=== PATIENT | female | born 1995 | race Caucasian/White ===

== ENCOUNTER 2016-12-26 06:58 | Emergency (ER) | payer BC ==
--- OUTSIDE RECORDS SUMMARY | 2016-12-26 07:22 | XMS REPORT | Summary of Care ---
:1995 Author Organization [facility] Address [address] [place] [address] Care Team Providers Name Role Phone Anne-Marie Mcneill Primary Care Physician Mariann Gracia Primary Care Physician Encounter Date(s): 10/06/16 - 10/06/16 [facility], [address] [place] [address]- [facility] Discharge Disposition: Discharged to Home or Self Care Attending Physician: DORA Bang Referring Physician: DORA Bang Vital Signs No data available for this section Problem List Condition Effective Dates Status Health Status Informant Iron deficiency anemia(Confirmed) Active Asthma(Confirmed) Active Hypothyroid(Confirmed) Active Migraines(Confirmed) Active Allergies, Adverse Reactions, Alerts No Known Medication Allergies Medications amitriptyline 25 mg oral tablet See Instructions, 1 tab(s) Oral HS for one week then 2 tabs oral HS, # 60 tab(s) , 1 Refill(s), Start Date: 08/09/16 10:20:00 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 Special Instructions: 2 tablets at start of attack; 1 additional tablet every 30 minutes, if needed maximum 6 tablets per attack, 10 per week Start Date: 04/14/14 Stop Date: 05/20/14 Status: Completedferrous sulfate extended release Oral, Daily, 0 Refill(s) Start Date: 12/23/13 Status: OrderedImitrex 25 mg oral tablet See Instructions, 1 tab(s) Oral at onset of headache, may repeat 1 tablet in 2 hours if headache has not resolved., # 9 tab(s), 0 Refill(s), Start Date: 13:35:49 MILLING SUPERVISOR, Pharmacy: [place], [place] Special Instructions: 1 tab(s) Oral at onset of headache, may repeat 1 tablet in 2 hours if headache has not resolved. Start Date: 07/06/15 Stop Date: 07/03/16 Status: CompletedImitrex 25 mg oral tablet See Instructions, 1 tab(s) Oral at onset of headache, may repeat 1 tablet in 2 hours if headache has not resolved., # 9 tab(s), 0 Refill(s), called to pharmacy (Rx) Special Instructions: 1 tab(s) Oral at onset of headache, may repeat 1 tablet in 2 hours if headache has not resolved. Start Date: 04/14/14 Stop Date: 07/06/15 Status: DiscontinuedImitrex 25 mg oral tablet 1 tab(s), Oral, Daily, take as directed, 0 Refill(s) Special Instructions: take as directed Start Date: 11/10/13 Stop Date: 12/09/13 Status: CompletedImitrex 25 mg oral tablet See Instructions, 1 tab(s) Oral at onset of headache, may repeat 1 tablet in 2 hours if headache has not resolved., # 9 tab(s), 0 Refill(s), Start Date: 9:22:15 MILLING SUPERVISOR, Pharmacy: [place], [place] Special Instructions: 1 tab(s) Oral at onset of headache, may repeat 1 tablet in 2 hours if headache has not resolved. Start Date: 07/03/16 Stop Date: 08/09/16 Status: DiscontinuedImitrex 50 mg oral tablet 1 tab(s), Oral, Daily, PRN for migraine headache, may repeat dose after 2 hours up to a maximum of 200 mg in 24 hours, # 18 tab(s), 0 Refill(s), Start Date: 10:21:00 MILLING SUPERVISOR, Pharmacy: [place], [place] Special Instructions: may repeat dose after 2 hours up to a maximum of 200 mg in 24 hours Start Date: 08/09/16 Status: OrderedNora-Be 0.35 mg oral tablet 1 tab(s), Oral, Daily, # 28 tab(s), 0 Refill(s), Start Date: 07/03/16 9:16:00 MILLING SUPERVISOR, Pharmacy: [facility] [place], [place] Start Date: 07/03/16 Stop Date: 07/03/16 Status: CompletedNora-Be 0.35 mg oral tablet 1 tab(s), Oral, Daily, # 90 tab(s), 3 Refill(s), Start Date: 07/03/16 9:22:33 MILLING SUPERVISOR, Pharmacy: [facility] Start Date: 07/03/16 Status: Orderednortriptyline 25 mg oral capsule 2 cap(s), Oral, Daily, Needs f/u appt, # 60 cap(s), 0 Refill(s), Pharmacy: [facility] Special Instructions: Needs f/u appt Start Date: 03/17/14 Stop Date: 04/14/14 Status: Discontinuednortriptyline 25 mg oral capsule 2 cap(s), Oral, Daily, # 90 cap(s), 0 Refill(s) Start Date: 03/17/14 Stop Date: 03/17/14 Status: Discontinuednortriptyline 25 mg oral capsule 2 cap(s), Oral, Daily, # 180 cap(s), 3 Refill(s), Start Date: 04/14/14 12:34:02 CDT, Pharmacy: [facility] Start Date: 04/14/14 Stop Date: 07/31/14 Status: Completednortriptyline 25 mg oral capsule 2 cap(s), Oral, Daily, 0 Refill(s) Start Date: 11/24/13 Stop Date: 01/09/14 Status: Completednortriptyline 25 mg oral capsule 2 cap(s), Oral, Daily, waiting for mail order, # 60 cap(s), 0 Refill(s), Start Date: 07/31/14 13:32:45 MILLING SUPERVISOR, Pharmacy: [facility] [place], [place] Special Instructions: waiting for mail order Start Date: 07/31/14 Stop Date: 07/06/15 Status: Discontinuednortriptyline 50 mg oral capsule 2 cap(s), Oral, HS, 0 Refill(s), Start Date: 07/03/16 8:15:00 MILLING SUPERVISOR Start Date: 07/03/16 Stop Date: 07/03/16 Status: Discontinuednortriptyline 50 mg oral capsule 2 cap(s), Oral, HS, # 60 cap(s), 0 Refill(s), Start Date: 07/03/16 9:24:05 MILLING SUPERVISOR, Pharmacy: [place], [place] Start Date: 07/03/16 Stop Date: 08/09/16 Status: Discontinuednortriptyline 50 mg oral capsule 2 cap(s), Oral, HS, # 60 cap(s), 0 Refill(s), Start Date: 07/03/16 9:21:00 MILLING SUPERVISOR, Pharmacy: [place], [place] Start Date: 07/03/16 Stop Date: 07/03/16 Status: CompletedOrtho Tri-Cyclen oral tablet 1 tab(s), Oral, Daily, 0 Refill(s) Start Date: 12/23/13 Stop Date: 12/23/13 Status: DiscontinuedOrtho-Novum 1/35 1 tab(s), Oral, Daily, 0 Refill(s) Start Date: 12/23/13 Stop Date: 01/20/14 Status: DiscontinuedOrtho-Novum 1/35 oral tablet 1 tab(s), Oral, Daily, Needs F/u Osito, # 28 tab(s), 1 Refill(s), Start Date: 06/07/15 15:47:31 CDT, Pharmacy: [place], [place] Special Instructions: Needs F/u Osito Start Date: 06/07/15 Stop Date: 07/06/15 Status: DiscontinuedOrtho-Novum 1/35 oral tablet 1 tab(s), Oral, Daily, Needs F/u Os[place], # 28 tab(s), 5 Refill(s), Start Date: 07/06/15 13:34:56 MILLING SUPERVISOR, Pharmacy: [place], [place] Special Instructions: Needs F/u Osito Start Date: 07/06/15 Stop Date: 07/03/16 Status: DiscontinuedOrtho-Novum oral tablet 1 tab(s), Oral, Daily, Called to [facility] [phone], X 28 days, # 28 tab(s), 1 Refill(s), Start Date: 01/20/14 15:14:00 CDT, called to pharmacy (Rx) Special Instructions: Called to [facility] [phone] Start Date: 01/20/14 Stop Date: 06/07/15 Status: CompletedProAir HFA 90 mcg/inh inhalation aerosol 2 puff(s), Inhale, q4hr, # 2 EA, 11 Refill(s), Start Date: 08/09/16 10:11:54 MILLING SUPERVISOR , Pharmacy: [place], [place] Start Date: 08/09/16 Status: OrderedProAir HFA 90 mcg/inh inhalation aerosol 2 puff(s), Inhale, q4hr, 0 Refill(s) Start Date: 12/23/13 Stop Date: 12/23/13 Status: DiscontinuedProAir HFA 90 mcg/inh inhalation aerosol 2 puff(s), Inhale, q4hr, # 1 EA, 1 Refill(s), Start Date: 12/23/13 9:41:00 CDT, Pharmacy: [facility] Start Date: 12/23/13 Stop Date: 07/03/16 Status: CompletedProAir HFA 90 mcg/inh inhalation aerosol 2 puff(s), Inhale, q4hr, # 1 EA, 0 Refill(s), Start Date: 07/03/16 9:20:48 MILLING SUPERVISOR, Pharmacy: [place], [place] Start Date: 07/03/16 Stop Date: 08/09/16 Status: CompletedSynthroid 50 mcg (0.05 mg) oral tablet 1 tab(s), Oral, Daily, # 30 tab(s), 1 Refill(s), Start Date: 08/09/16 10:10:39 MILLING SUPERVISOR, Pharmacy: [facility], [place] Start Date: 08/09/16 Status: OrderedSynthroid 50 mcg (0.05 mg) oral tablet 1 tab(s), Oral, Daily, Needs f/u Osito, # 30 tab(s), 0 Refill(s), Start Date: 06/07/15 15:46:58 CDT, Pharmacy: [place], [place] Special Instructions: Needs f/u Os[place] Start Date: 06/07/15 Stop Date: 07/06/15 Status: DiscontinuedSynthroid 50 mcg (0.05 mg) oral tablet 1 tab(s), Oral, Daily, Needs f/u Osito, # 30 tab(s), 5 Refill(s), Start Date: 07/06/15 13:34:54 MILLING SUPERVISOR, Pharmacy: [place], [place] Special Instructions: Needs f/u Osito Start Date: 07/06/15 Stop Date: 07/03/16 Status: CompletedSynthroid 50 mcg (0.05 mg) oral tablet 1 tab(s), Oral, Daily, # 30 tab(s), 0 Refill(s), Pharmacy: [facility] Start Date: 02/05/14 Stop Date: 02/05/14 Status: CompletedSynthroid 50 mcg (0.05 mg) oral tablet 1 tab(s), Oral, Daily, 0 Refill(s) Start Date: 12/23/13 Stop Date: 02/05/14 Status: DiscontinuedSynthroid 50 mcg (0.05 mg) oral tablet 1 tab(s), Oral, Daily, # 30 tab(s), 0 Refill(s) Start Date: 02/05/14 Stop Date: 02/05/14 Status: CompletedSynthroid 50 mcg (0.05 mg) oral tablet 1 tab(s), Oral, Daily, mail order pending, # 30 tab(s), 0 Refill(s), Start Date : 06/02/14 10:50:50 CDT, Pharmacy: [place], [place] Special Instructions: mail order pending Start Date: 06/02/14 Stop Date: 07/31/14 Status: CompletedSynthroid 50 mcg (0.05 mg) oral tablet 1 tab(s), Oral, Daily, # 30 tab(s), 1 Refill(s), Start Date: 07/03/16 9:21:19 MILLING SUPERVISOR, Pharmacy: [place], [place] Start Date: 07/03/16 Stop Date: 08/09/16 Status: DiscontinuedSynthroid 50 mcg (0.05 mg) oral tablet 1 tab(s), Oral, Daily, mail order pending, # 30 tab(s), 0 Refill(s), Start Date : 07/31/14 13:31:37 MILLING SUPERVISOR, Pharmacy: [facility] [place], [place] Special Instructions: mail order pending Start Date: 07/31/14 Stop Date: 06/07/15 Status: CompletedSynthroid 50 mcg (0.05 mg) oral tablet 1 tab(s), Oral, Daily, # 30 tab(s), 0 Refill(s), Pharmacy: [facility] Start Date: 02/05/14 Stop Date: 06/02/14 Status: Completed Results No data available for this section Immunizations Vaccine Date Refusal Reason diphtheria/pertussis, acel/tetanus ped 02/14/02 diphtheria/pertussis, acel/tetanus ped 11/26/97 diphtheria/pertussis, acel/tetanus ped 96 diphtheria/pertussis, acel/tetanus ped 96 diphtheria/pertussis, acel/tetanus ped 96 haemophilus b conjugate (PRP-T) vaccine 05/21/97 haemophilus b conjugate (PRP-T) vaccine 96 haemophilus b conjugate (PRP-T) vaccine 96 haemophilus b conjugate (PRP-T) vaccine 96 hepatitis B vaccine 96 hepatitis B vaccine 96 hepatitis B vaccine 96 human papillomavirus vaccine 06/29/11 human papillomavirus vaccine 08/03/10 human papillomavirus vaccine 04/18/10 measles/mumps/rubella virus vaccine 02/14/02 measles/mumps/rubella virus vaccine 05/21/97 meningococcal conjugate vaccine 01/22/15 meningococcal conjugate vaccine 04/18/10 poliovirus vaccine, inactivated 02/14/02 poliovirus vaccine, inactivated 96 poliovirus vaccine, inactivated 96 poliovirus vaccine, inactivated 96 tetanus/diphtheria/pertussis, acel(Tdap) 06/29/11 Procedures No data available for this section Social History No data available for this section Assessment and Plan No data available for this section
--- OUTSIDE RECORDS SUMMARY | 2016-12-26 07:22 | XMS REPORT | Summary of Care ---
:1995 Author Organization [facility] Address [address] [place] [address] Care Team Providers Name Role Phone Anne-Marie Mcneill Primary Care Physician Encounter Date(s): 09/11/16 - 09/11/16 [facility], [address] [place] [address]- [facility] Discharge Disposition: Discharged to Home or Self Care Attending Physician: Sarai Thompson MD Vital Signs No data available for this [...] , 1 Refill(s), Start Date: 08/09/16 10:20:00 POISING INSPECTOR, Pharmacy: [facility], [place] Start Date: 08/09/16 Status: OrderedCafergot 1 mg-100 mg oral tablet See Instructions, PRN for headache, 2 tablets at start of attack; 1 additional tablet every 30 minutes, if needed maximum 6 tablets per attack, 10 per week, # 20 tab(s), 0 Refill(s), Pharmacy: [facility] Start Date: 04/14/14 Stop Date: 05/20/14 Status: Completedferrous sulfate extended release Oral, Daily, 0 Refill(s) Start Date: 12/23/13 Status: OrderedImitrex 25 mg oral tablet See Instructions, 1 tab(s) Oral at onset of headache, may repeat 1 tablet in 2 hours if headache has not resolved., # 9 tab(s), 0 Refill(s), Start Date: 13:35:49 POISING INSPECTOR, Pharmacy: [place], [place] Start Date: 07/06/15 Stop Date: 07/03/16 Status: CompletedImitrex 25 mg oral tablet See Instructions, 1 tab(s) Oral at onset of headache, may repeat 1 tablet in 2 hours if headache has not resolved., # 9 tab(s), 0 Refill(s), called to pharmacy (Rx) Start Date: 04/14/14 Stop Date: 07/06/15 Status: DiscontinuedImitrex 25 mg oral tablet 1 tab(s), Oral, Daily, take as directed, 0 Refill(s) Start Date: 11/10/13 Stop Date: 12/09/13 Status: CompletedImitrex 25 mg oral tablet See Instructions, 1 tab(s) Oral at onset of headache, may repeat 1 tablet in 2 hours if headache has not resolved., # 9 tab(s), 0 Refill(s), Start Date: 9:22:15 POISING INSPECTOR, Pharmacy: [place], [place] Start Date: 07/03/16 Stop Date: 08/09/16 Status: DiscontinuedImitrex 50 mg oral tablet 1 tab(s), Oral, Daily, PRN for migraine headache, may repeat dose after 2 hours up to a maximum of 200 mg in 24 hours, # 18 tab(s), 0 Refill(s), Start Date: 10:21:00 POISING INSPECTOR, Pharmacy: [place], [place] Start Date: 08/09/16 Status: OrderedNora-Be 0.35 mg oral tablet 1 tab(s), Oral, Daily, # 28 tab(s), 0 Refill(s), Start Date: 07/03/16 9:16:00 POISING INSPECTOR, Pharmacy: [place], [place] Start Date: 07/03/16 Stop Date: 07/03/16 Status: CompletedNora-Be 0.35 mg oral tablet 1 tab(s), Oral, Daily, # 90 tab(s), 3 Refill(s), Start Date: 07/03/16 9:22:33 POISING INSPECTOR, Pharmacy: [facility] Start Date: 07/03/16 Status: Orderednortriptyline 25 mg oral capsule 2 cap(s), Oral, Daily, Needs f/u appt, # 60 cap(s), 0 Refill(s), Pharmacy: [facility] Start Date: 03/17/14 Stop Date: 04/14/14 Status: [...] cap(s), 0 Refill(s), Start Date: 07/31/14 13:32:45 POISING INSPECTOR, Pharmacy: [place], [place] Start Date: 07/31/14 Stop Date: 07/06/15 Status: Discontinuednortriptyline 50 mg oral capsule 2 cap(s), Oral, HS, 0 Refill(s), Start Date: 07/03/16 8:15:00 POISING INSPECTOR Start Date: 07/03/16 Stop Date: 07/03/16 Status: Discontinuednortriptyline 50 mg oral capsule 2 cap(s), Oral, HS, # 60 cap(s), 0 Refill(s), Start Date: 07/03/16 9:24:05 POISING INSPECTOR, Pharmacy: [place], [place] Start Date: 07/03/16 Stop Date: 08/09/16 Status: Discontinuednortriptyline 50 mg oral capsule 2 cap(s), Oral, HS, # 60 cap(s), 0 Refill(s), Start Date: 07/03/16 9:21:00 POISING INSPECTOR, Pharmacy: [place], [place] Start Date: 07/03/16 Stop Date: 07/03/16 Status: CompletedOrtho Tri-Cyclen oral tablet 1 tab(s), Oral, Daily, 0 Refill(s) Start Date: 12/23/13 Stop Date: 12/23/13 Status: DiscontinuedOrtho-Novum 1/35 1 tab(s), Oral, Daily, 0 Refill(s) Start Date: 12/23/13 Stop Date: 01/20/14 Status: DiscontinuedOrtho-Novum 1/35 oral tablet 1 tab(s), Oral, Daily, Needs F/u Osito, # 28 tab(s), 1 Refill(s), Start Date: 06/07/15 15:47:31 CDT, Pharmacy: [place], [place] Start Date: 06/07/15 Stop Date: 07/06/15 Status: DiscontinuedOrtho-Novum 1/35 oral tablet 1 tab(s), Oral, Daily, Needs F/u Osito, # 28 tab(s), 5 Refill(s), Start Date: 07/06/15 13:34:56 POISING INSPECTOR, Pharmacy: [place], [place] Start Date: 07/06/15 Stop Date: 07/03/16 Status: DiscontinuedOrtho-Novum 1/35 oral tablet 1 tab(s), Oral, Daily, Called to [facility] [phone], X 28 days, # 28 tab(s), 1 Refill(s), Start Date: 01/20/14 15:14:00 CDT, called to pharmacy (Rx) Start Date: 01/20/14 Stop Date: 06/07/15 Status: CompletedProAir HFA 90 mcg/inh inhalation aerosol 2 puff(s), Inhale, q4hr, # 2 EA, 11 Refill(s), Start Date: 08/09/16 10:11:54 POISING INSPECTOR , Pharmacy: [facility], [place] Start Date: 08/09/16 Status: OrderedProAir HFA 90 mcg/inh inhalation aerosol 2 puff(s), Inhale, q4hr, 0 Refill(s) Start Date: 12/23/13 Stop Date: 12/23/13 Status: DiscontinuedProAir HFA 90 mcg/inh inhalation aerosol 2 puff(s), Inhale, q4hr, # 1 EA, 1 Refill(s), Start Date: 12/23/13 9:41:00 CDT, Pharmacy: [facility] Start Date: 12/23/13 Stop Date: 07/03/16 Status: CompletedProAir HFA 90 mcg/inh inhalation aerosol 2 puff(s), Inhale, q4hr, # 1 EA, 0 Refill(s), Start Date: 07/03/16 9:20:48 POISING INSPECTOR, Pharmacy: [place], [place] Start Date: 07/03/16 Stop Date: 08/09/16 Status: CompletedSynthroid 50 mcg (0.05 mg) oral tablet 1 tab(s), Oral, Daily, # 30 tab(s), 1 Refill(s), Start Date: 08/09/16 10:10:39 POISING INSPECTOR, Pharmacy: [place], [place] Start Date: 08/09/16 Status: OrderedSynthroid 50 mcg (0.05 mg) oral tablet 1 tab(s), Oral, Daily, Needs f/u Osito, # 30 tab(s), 0 Refill(s), Start Date: 06/07/15 15:46:58 CDT, Pharmacy: [place], [place] Start Date: 06/07/15 Stop Date: 07/06/15 Status: DiscontinuedSynthroid 50 mcg (0.05 mg) oral tablet 1 tab(s), Oral, Daily, Needs f/u Os[place], # 30 tab(s), 5 Refill(s), Start Date: 07/06/15 13:34:54 POISING INSPECTOR, Pharmacy: [place], [place] Start Date: 07/06/15 Stop Date: 07/03/16 Status: CompletedSynthroid 50 mcg (0.05 mg) oral tablet 1 tab(s), Oral, Daily, # 30 tab(s), 0 Refill(s), Pharmacy: [facility] Start Date: 02/05/14 Stop Date: 02/05/14 Status: [...] Start Date : 06/02/14 10:50:50 CDT, Pharmacy: [place], [place] Start Date: 06/02/14 Stop Date: 07/31/14 Status: CompletedSynthroid 50 mcg (0.05 mg) oral tablet 1 tab(s), Oral, Daily, # 30 tab(s), 1 Refill(s), Start Date: 07/03/16 9:21:19 POISING INSPECTOR, Pharmacy: [place], [place] Start Date: 07/03/16 Stop Date: 08/09/16 Status: DiscontinuedSynthroid 50 mcg (0.05 mg) oral tablet 1 tab(s), Oral, Daily, mail order pending, # 30 tab(s), 0 Refill(s), Start Date : 07/31/14 13:31:37 POISING INSPECTOR, Pharmacy: [place], [place] Start Date: 07/31/14 Stop Date: 06/07/15 Status: CompletedSynthroid 50 mcg (0.05 mg) oral tablet 1 tab(s), Oral, Daily, # 30 tab(s), 0 Refill(s), Pharmacy: [facility] Start Date: 02/05/14 Stop Date: 06/02/14 Status: Completed Results No data available for this section Immunizations Given and Recorded Vaccine Date Status Refusal Reason diphtheria/pertussis, acel/tetanus ped 02/14/02 Recorded diphtheria/pertussis, acel/tetanus ped 11/26/97 Recorded diphtheria/pertussis, acel/tetanus ped 96 Recorded diphtheria/pertussis, acel/tetanus ped 96 Recorded diphtheria/pertussis, acel/tetanus ped 96 Recorded haemophilus b conjugate (PRP-T) vaccine 05/21/97 Recorded haemophilus b conjugate (PRP-T) vaccine 96 Recorded haemophilus b conjugate (PRP-T) vaccine 96 Recorded haemophilus b conjugate (PRP-T) vaccine 96 Recorded hepatitis B vaccine 96 Recorded hepatitis B vaccine 96 Recorded hepatitis B vaccine 96 Recorded human papillomavirus vaccine 06/29/11 Recorded human papillomavirus vaccine 08/03/10 Recorded human papillomavirus vaccine 04/18/10 Recorded measles/mumps/rubella virus vaccine 02/14/02 Recorded measles/mumps/rubella virus vaccine 05/21/97 Recorded meningococcal conjugate vaccine 01/22/15 Given meningococcal conjugate vaccine 04/18/10 Recorded poliovirus vaccine, inactivated 02/14/02 Recorded poliovirus vaccine, inactivated 96 Recorded poliovirus vaccine, inactivated 96 Recorded poliovirus vaccine, inactivated 96 Recorded tetanus/diphtheria/pertussis, acel(Tdap) 06/29/11 Recorded Procedures No data available for this section Social History No data available for this section Assessment and Plan No data available for this section
[2016-12-26] MEDS ORDERED: NORMAL SALINE 1,000 ML IV ONE (07:28)
[2016-12-26] MEDS ORDERED: diphenhydrAMINE HCL 50 MG/ML VIAL IV ONE (07:28)
[2016-12-26] MEDS ORDERED: ONDANSETRON HCL/PF 2 MG/ML VIAL IV ONE (07:28)
--- NOTE | 2016-12-26 07:29 | ERNOTE ---
Headache ER HPI - General Presenting Symptoms: "migraine" Time Seen by Provider: 12/26/16 07:11 Source: patient Exam Limitations: no limitations - Immun/Allergies/Home Medications Immunizations: IMMUNIZATION HX Immunizations Up to Date Yes History of Influenza Vaccine No Hx Pneumococcal Vaccination Yes Allergies/Adverse Reactions: Allergies No Known Allergies Allergy (Verified 12/26/16 07:09) Home Medications: HOME MEDICATIONS Levothyroxine Sodium [Synthroid] 50 mcg PO DAILY 11/17/14 [Last Taken Unknown] Norethindrone-Ethinyl Estrad [Cyclafem 1-35-28 Tablet] 1 each PO DAILY 11/17/14 [Last Taken Unknown] Nortriptyline HCl [Pamelor] 100 mg PO HS 11/17/14 [Last Taken Unknown] SUMAtriptan SUCCINATE [Imitrex] 25 mg PO PRN PRN 11/17/14 [Last Taken Unknown] - Pain Pain Score: 8 - History of Present Illness Narrative: Pt had onset of typical left temporal migraine with aura last night around 17: 30. Aura is lateral scotoma that disappears with onset of pain. Trigger was a bright light. She took imitrex and excedrin migraine together which provided some benefit but headache returned around 23:00 and she repeated both medications. She went to sleep and woke up with the headache early this am and repeated the two medications again. Headache persists despite oral treatment. Activity at onset: other Timing of Headache: abrupt, persistent Quality: Present: throbbing Severity Maximum: Present: severe Severity-Currently: Present: severe Headache frequency: Present: frequent headaches - approx 2 x per month Modifying Factors - (Improves): Reports: medication Modifying Factors - (Worsens): Reports: movement, exposure to light Associated Symptoms: Reports: nausea, vomiting, vision changes Exacerbated by:: Reports: light, noise Review of Systems - Review of Systems Constitutional: Absent: recent illness, fever, chills EYE: Present: see HPI ENT: Absent: sore throat, throat swelling Respiratory: Present: no symptoms reported Cardiology: Present: no symptoms reported Gastrointestinal/Abdominal: Present: nausea, vomiting Genitourinary: Present: no symptoms reported Musculoskeletal: Present: muscle pain, neck pain Skin: Present: no symptoms reported Neurological: Absent: dizziness/light-headedness Endocrine: Present: no symptoms reported Hematologic/Lymphatic: Present: no symptoms reported Psych: Present: no symptoms reported - Patient's Past Medical History Patient History - Medical: Hypothyroidism, Migraines Patient History - Cardiac/Respiratory: No pertinent hx Patient History - Cancer: No Hx of Cancer Patient History - Surgical Procedures: No surgical history Patient History - Other: None LMP (females 10-50): this week LMP (Calendar): 06/10/15 - Social History Living Situations: home Psych History: No pertinent hx Smoking Status: Never smoker Alcohol Use: none Drug Use: none - Immunizations Immunizations Up to Date: Yes Hx Pneumococcal Vaccination: Yes History of Influenza Vaccine: No Physical Exam - Physical Exam General Appearance: Present: wd/wn, alert, no apparent distress Eye Exam: Normal inspection: bilateral, PERRL: bilateral, EOMI: bilateral Ears, Nose, Throat: Present: normal ENT inspection, normal pharynx Neck: Present: normal inspection, nontender, supple, full range of motion Respiratory: Present: no respiratory distress Extremity Exam: Present: normal inspection, normal range of motion Neurological Exam: Present: alert, oriented, normal mood/affect, no motor/ sensory deficits, vp analytics II-XII nml as tested Skin Exam: Present: normal color, warm/dry Lymphatic Exam: Present: no adenopathy ED Progress - Vital Signs Vital Signs: Vital Signs 12/26/16 07:03 Temperature 35.6 C L Pulse Rate 82 Respiratory 16 Rate Blood Pressure 150/92 O2 Sat by Pulse 100 Oximetry - Progress/Reassessment Chief Complaint: Headache Progress:: Improved Progress Note-Subjective: 12/26/16 08:28 nearly pain free Departure Clinical Impression: Migraine with aura Qualifiers: Status migrainosus presence: without status migrainosus Intractability: intractable Qualified Code(s): G43.119 - Migraine with aura, intractable, without status migrainosus - Departure Disposition: Home Follow Up Needed Condition: Good Instructions: Recurrent Migraine Headache Additional Instructions: Get plenty of rest today, drink plenty of fluids. See your regular doctor as needed Referrals: Mariann Gracia CWHNP [Primary Care Provider] -
[2016-12-26] MEDS ORDERED: diphenhydrAMINE HCL 50 MG/ML VIAL ONE (07:34)
[2016-12-26] MEDS ORDERED: ONDANSETRON HCL/PF 2 MG/ML VIAL ONE (07:35)
[2016-12-26 09:09] VITALS: BP 150/66
== END 2016-12-26 08:50 | disposition home or self-care (01) ==
LOC: ER 06:58
DX: G43.119 Migraine with aura, intractable, without status migrainosus (principal); E03.9 Hypothyroidism, unspecified